=== PATIENT | male | born 1990 | race Two or more races ===

== ENCOUNTER 2019-12-05 20:16 | Emergency (ER) | payer OTHER ==
[~2019-12-05] VITALS: Ht 180.3 cm; Wt 88.5 kg
[~2019-12-05 20:16] MED LIST: ALPR0.5T8 PO; EMTR1TAB6 PO; LISD50CA2 PO
--- NOTE | 2019-12-05 20:33 | NUR ---
Dr. Molina at bedside for MSE.
[2019-12-05] MEDS ORDERED: NEOMY/BACITRA/POLYMYXIN B OINT UD PACKET TP ONE ×2 (20:57→21:00)
--- NOTE | 2019-12-05 20:59 | NUR ---
Wound tx done as ordered. Triple antibiotic applied to L knee scrapes. Covered with bandaid, tolerated well.
--- NOTE | 2019-12-05 21:11 | NUR ---
Pt cleared for DC by . MD explained things to w/o for regarding the head injury. RN explained discharge instructions, including the medications prescribed. Pt verbalized understanding. Stressed follow up or return to ER for worsening s/s.Ambulated out of ER in steady gait and stable condition.
[2019-12-05 21:13] VITALS: BP 139/80
== END 2019-12-05 21:13 | disposition home or self-care (01) ==
LOC: ER 20:22
DX: S40.012A Contusion of left shoulder, initial encounter (principal); S80.212A Abrasion, left knee, initial encounter; S09.8XXA Other specified injuries of head, initial encounter; V18.4XXA Pedal cycle driver injured in noncollision transport accident in traffic accident, initial encounter; Y93.C2 Activity, hand held interactive electronic device; Y93.55 Activity, bike riding; Y92.89 Other specified places as the place of occurrence of the external cause; F41.9 Anxiety disorder, unspecified; Z79.899 Other long term (current) drug therapy
CPT/HCPCS: 73030; A4663

== ENCOUNTER 2021-11-09 23:33 | Emergency (ER) | payer SELFPAY ==
[~2021-11-09 23:33] MED LIST changes: -EMTR1TAB6 PO
== END 2021-11-10 00:08 | disposition left against medical advice (07) ==
LOC: ER 23:39
DX: Z53.21 Procedure and treatment not carried out due to patient leaving prior to being seen by health care provider (principal)

== ENCOUNTER 2022-09-25 21:24 | Emergency (ER) | payer OTHER ==
[~2022-09-25] VITALS: Ht 180.3 cm; Wt 88.5 kg
--- NOTE | 2022-09-25 21:46 | NUR ---
Dr. Molina at bedside. MSE in progress.
[2022-09-25] MEDS ORDERED: DOXY100C5 PO (21:59)
[2022-09-25] MEDS ORDERED: BICT1TAB PO (21:59)
[2022-09-25] MEDS ORDERED: DOXYCYCLINE HYCLATE 100 MG TABLET PO ONE (22:00)
[2022-09-25] MEDS ORDERED: DOXYCYCLINE HYCLATE 100 MG TABLET ONE (22:01)
--- NOTE | 2022-09-25 22:58 | NUR ---
oil field technician at beside.
--- NOTE | 2022-09-25 23:27 | NUR ---
Patient a/o x 4. NAD noted. Ambulatory with a steady gait. Patient discharged to home in stable condition. Written and verbal after care instructions given. Patient verbalizes understanding of instructions. Stressed follow up or return to ER for worsening s/s. All belongings with patient.
[2022-09-25 23:30] VITALS: BP 131/58
== END 2022-09-25 23:30 | disposition home or self-care (01) ==
LOC: ER 21:31
DX: N50.811 Right testicular pain (principal); H10.9 Unspecified conjunctivitis; Z79.2 Long term (current) use of antibiotics; Z79.899 Other long term (current) drug therapy
CPT/HCPCS: 76870; A4663

== ENCOUNTER 2024-10-21 18:29 | Emergency (ER) | payer OTHER ==
[~2024-10-21] VITALS: Ht 182.9 cm; Wt 95.3 kg
[~2024-10-21 18:29] MED LIST changes: +BICT1TAB PO; +DOXY100C5 PO
[2024-10-21] MEDS ORDERED: KETOROLAC TROMETHAMINE 30 MG INJ ONE (20:53)
[2024-10-21] MEDS: KETOROLAC TROMETHAMINE 30 MG INJ IM ONE (21:07)
[2024-10-21] MEDS ORDERED: HYDROCODONE/APAP 5-325MG TABLET ONE (23:04)
[2024-10-21] MEDS ORDERED: HYDR-3972 PO (23:05)
[2024-10-21] MEDS: HYDROCODONE/APAP 5-325MG TABLET PO ONE (23:22)
[2024-10-21 23:23] VITALS: BP 119/74; O2SAT 98
== END 2024-10-21 23:17 | disposition home or self-care (01) ==
LOC: ER 18:35
DX: S13.4XXA Sprain of ligaments of cervical spine, initial encounter (principal); F41.9 Anxiety disorder, unspecified; R06.00 Dyspnea, unspecified; R07.9 Chest pain, unspecified; Z79.899 Other long term (current) drug therapy; Z88.7 Allergy status to serum and vaccine; Z87.09 Personal history of other diseases of the respiratory system; Z86.59 Personal history of other mental and behavioral disorders; V89.2XXA Person injured in unspecified motor-vehicle accident, traffic, initial encounter; Y93.89 Activity, other specified; Y92.488 Other paved roadways as the place of occurrence of the external cause; Y99.8 Other external cause status
CPT/HCPCS: 99284; 71045; 72040; 72100; 96372; J1885; A4606; A4663